=== PATIENT | male | born 1985 | race Caucasian/White ===

== ENCOUNTER 2017-03-29 14:49 | Emergency (ER) | payer MEDICAID ==
[~2017-03-29] VITALS: Ht 177.8 cm; Wt 99.8 kg
[~2017-03-29 14:49] MED LIST: CIPRO 500MG TA500 MG PO; KEFLEX 500MG.500 MG PO; NOMEDS *; NORCO 325 MG-51 TAB PO; TRAMADOL50 M1 PO
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
--- OUTSIDE RECORDS SUMMARY | 2017-03-29 15:34 | External Medical Summary Rpt ---
Author Author RHONDA Nevarez, RH[employer]DA [employer] Organization [employer] Address Unknown Phone Unavailable
--- OUTSIDE RECORDS SUMMARY | 2017-03-29 15:34 | External Medical Summary Rpt ---
Demographics Preferred Language Korean Marital Status Unknown Uatsdin Affiliation Unknown Race Unknown Ethnic Group Unknown Author Author , RHONDA ELLIS Address Unknown Phone Immunization Unable to retrieve immunization data due to connection failure with Immunization Registry. Please try again later.
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
--- OUTSIDE RECORDS SUMMARY | 2017-03-29 15:34 | External Medical Summary Rpt ---
Demographics Preferred Language Ukrainian Marital Status Unknown Lutheran Affiliation Unknown Race Unknown Ethnic Group Unknown Author Author , RHONDA ELLIS Address Unknown Phone Immunization Unable to retrieve immunization data due to connection failure with Immunization Registry. Please try again later.
--- NOTE | 2017-03-29 15:41 | Emergency Room Report ---
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 N Clinical Suspician of Infection? N Mental Status: 1 - Regular (Normal Baseline) Sepsis Risk:Low Sepsis Risk Have you (or family members/close friends) recently traveled outside the [place]? N If Yes, where/when: Have you had exposure to infectious disease within the past month? N TB? Other? Specify: Patient with chronic ear problems, followed by Dr. Blanco. Also has chronic sinus problems, with surgical repair for deviated septum. He reports ear pain for the past day or so. No fever. He last was exposed to water about eight days ago. No garret drainage. ALLERGIES Coded Allergies: No Known Allergies (03/29/17) Home Medications Reported Medications No Known Home Medications History Medical History General CAD? No Angina: No [place]: No Hypertension? No Hyperlipidemia? No CHF? No DVT? No PE? No COPD? No Asthma? No Anemia? No GERD? No Gastric ulcers? No GI Bleed? No Hernia? No Thyroid Problems? No Hypothyroidism? No CVA? No Seizures? No Diabetes? No Renal Insuffiency? No End Stage Renal Disease? No UTI? No Stones? No GB Disease: No Nephritic Syndrome? No Asplenia? No Hepatitis? No Sickle Cell Disease? No Arthritis? No Migraines? No Cataracts? No Glaucoma? No MRSA? No HIV? No TB? No Anxiety? No Depression? No Cancer? No More? No Immunization Hx DT/Tetanus 03/21/12 Surgical Hx Previous Surgery?Y DEVIATED SEPTUM Social History Smoking Hx Smoker: Current Every Day Smoker Tobacco: Yes Type Cigarettes Packs/day < 1 Pack Alcohol Alcohol: Yes Review of Systems All Other Systems Reviewed and Negative ENT see HPI. Physical Exam Vital Signs Vital Signs Date Time Temp Pulse Resp B/P Pulse O2 O2 Flow FiO2 Ox Delivery Rate 03/29 1452 98.6 94 18 153/87 93 General Appearance normal appearance, WD/WN, no apparent distress Eye Exam - bilateral eye normal exam, bilateral eye PERRL, bilateral eye EOMI Ear, Nose, Throat TM's are red and bulging bilaterally; they are intact, but left one is irregular and appears somewhat scarred. I see some slightly liquid cerumen in the right ear canal without garret drainage or erythema. No MARCO ANTONIO, throat w/o erythema. He has very mild nasal congestion and is baseline [employer]. Neck normal inspection, non-tender, supple, full range of motion Respiratory Status Yes: trachea midline. No: respiratory distress. Cardiovascular no peripheral edema Neurologic alert, normal exam, no motor/sensory deficits, oriented x 3 (baseline [employer] [employer]) Glascow Coma Scale Glascow Coma Scale Response Value EYE response: 4 Spontaneously 4 MOTOR response: 6 OBEYS 6 VERBAL response: 5 Oriented & Converses 5 Total 15 Skin intact, normal color, warm/dry Medical Decision Making LABS/Meds/Orders Pt receiving controlled substance in ED? No Departure Departure Time of Disposition 1622 Disposition DC Home or Self Care(routine) Clinical Impression Primary Impression: Otitis media Qualifiers: Otitis media type: unspecified Chronicity: unspecified Laterality: bilateral Qualified Code: H66.93 - Otitis media, unspecified, bilateral Condition STABLE Referrals Petra SALEH,Roberto Barrientos (Family) Francis SALEH,Arnaud Ryder Patient Instructions Middle Ear Infection Additional Instructions Rx Naproxen, Augmentin; see Dr. Lambert next week and Dr. Blanco, next available appointment. Discharge Counseling Counseled pt/family regarding diagnosis, test results, medications/RX, home care, follow up needs Prescriptions Current Visit Scripts NAPROXEN (NAPROXEN 500MG TAB) 500 MG PO BIDP PRN pain #20 TAB Amoxicillin/Potassium Clav (Augmentin 875-125 Tablet) 1 EACH PO BID #20 TAB ED Critical Care Critical Care No at 1628
--- NOTE | 2017-03-29 15:41 | Emergency Room Report ---
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 N Clinical Suspician of Infection? N Mental Status: 1 - Regular (Normal Baseline) Sepsis Risk:Low Sepsis Risk Have you (or family members/close friends) recently traveled outside the [place]? N If Yes, where/when: Have you had exposure to infectious disease within the past month? N TB? Other? Specify: Patient with chronic ear problems, followed by Dr. Blanco. Also has chronic sinus problems, with surgical repair for deviated septum. He reports ear pain for the past day or so. No fever. He last was exposed to water about eight days ago. No garret drainage. ALLERGIES Coded Allergies: No Known Allergies (03/29/17) Home Medications Reported Medications No Known Home Medications History Medical History General CAD? No Angina: No VA: No Hypertension? No Hyperlipidemia? No CHF? No DVT? No PE? No COPD? No Asthma? No Anemia? No GERD? No Gastric ulcers? No GI Bleed? No Hernia? No Thyroid Problems? No Hypothyroidism? No CVA? No Seizures? No Diabetes? No Renal Insuffiency? No End Stage Renal Disease? No UTI? No Stones? No GB Disease: No Nephritic Syndrome? No Asplenia? No Hepatitis? No Sickle Cell Disease? No Arthritis? No Migraines? No Cataracts? No Glaucoma? No MRSA? No HIV? No TB? No Anxiety? No Depression? No Cancer? No More? No Immunization Hx DT/Tetanus 03/21/12 Surgical Hx Previous Surgery?Y DEVIATED SEPTUM Social History Smoking Hx Smoker: Current Every Day Smoker Tobacco: Yes Type Cigarettes Packs/day < 1 Pack Alcohol Alcohol: Yes Review of Systems All Other Systems Reviewed and Negative ENT see HPI. Physical Exam Vital Signs Vital Signs Date Time Temp Pulse Resp B/P Pulse O2 O2 Flow FiO2 Ox Delivery Rate 03/29 1452 98.6 94 18 153/87 93 General Appearance normal appearance, WD/WN, no apparent distress Eye Exam - bilateral eye normal exam, bilateral eye PERRL, bilateral eye EOMI Ear, Nose, Throat TM's are red and bulging bilaterally; they are intact, but left one is irregular and appears somewhat scarred. I see some slightly liquid cerumen in the right ear canal without garret drainage or erythema. No MARCO ANTONIO, throat w/o erythema. He has very mild nasal congestion and is baseline [place]. Neck normal inspection, non-tender, supple, full range of motion Respiratory Status Yes: trachea midline. No: respiratory distress. Cardiovascular no peripheral edema Neurologic alert, normal exam, no motor/sensory deficits, oriented x 3 (baseline [place]) Glascow Coma Scale Glascow Coma Scale Response Value EYE response: 4 Spontaneously 4 MOTOR response: 6 OBEYS 6 VERBAL response: 5 Oriented & Converses 5 Total 15 Skin intact, normal color, warm/dry Medical Decision Making LABS/Meds/Orders Pt receiving controlled substance in ED? No Departure Departure Time of Disposition 1622 Disposition DC Home or Self Care(routine) Clinical Impression Primary Impression: Otitis media Qualifiers: Otitis media type: unspecified Chronicity: unspecified Laterality: bilateral Qualified Code: H66.93 - Otitis media, unspecified, bilateral Condition STABLE Referrals Petra SALEH,Roberto Barrientos (Family) Francis SALEH,Arnaud Ryder Patient Instructions Middle Ear Infection Additional Instructions Rx Naproxen, Augmentin; see Dr. Lambert next week and Dr. Blanco, next available appointment. Discharge Counseling Counseled pt/family regarding diagnosis, test results, medications/RX, home care, follow up needs Prescriptions Current Visit Scripts NAPROXEN (NAPROXEN 500MG TAB) 500 MG PO BIDP PRN pain #20 TAB Amoxicillin/Potassium Clav (Augmentin 875-125 Tablet) 1 EACH PO BID #20 TAB ED Critical Care Critical Care No at 1627
[2017-03-29] MEDS ORDERED: NAPROXEN SODIU500 MG PO (16:26)
[2017-03-29] MEDS ORDERED: AUGMENTIN 875-1 EACH PO (16:26)
[2017-03-29 16:29] VITALS: BP 142/74
== END 2017-03-29 16:29 | disposition home or self-care (01) ==
LOC: ER 14:49
DX: H66.93 Otitis media, unspecified, bilateral (principal)

== ENCOUNTER 2017-03-31 08:50 | Emergency (ER) | payer MEDICAID ==
[~2017-03-31] VITALS: Ht 177.8 cm; Wt 99.8 kg
[~2017-03-31 08:50] MED LIST changes: +AUGMENTIN 875-1 EACH PO; +NAPROXEN SODIU500 MG PO
[2017-03-31] MEDS ORDERED: MEDROL 4MG. DOSE4 MG PO (09:23)
--- NOTE | 2017-03-31 09:23 | Urgent Treatment Center Report ---
History of Present Issue Date/Time Seen by Provider 03/31/17 0911 Visit Reason Pt arrived:Walked Presenting Problem:RT EAR PAIN SINCE WEDNESDAY. SEEN IN ER WEDNESDAY FOR EAR PAIN. Location if Accident: Onset of symptoms date/time:/ or onset unknown for:MEDICAL HX UNKNOWN Have you (or family members/close friends) recently traveled outside the [place]? N If Yes, where/when: Have you had exposure to infectious disease within the past month? TB? Other? Specify: Patient state that he has a history of chronic ear infections state that he was seen in the ER on Wednesday and given Augmentin states that he has been taking it but still having pain in his ear and his ear is draining puss State that this occurs frequently when he gets a ear infection State that he normally sees Dr Blanco ENT but he is out of town right now ALLERGIES Coded Allergies: No Known Allergies (03/29/17) Home Medications Active Scripts Amoxicillin/Potassium Clav (Augmentin 875-125 Tablet) 1 EACH PO BID #20 TAB Prov: 03/29/17 History Medical History General CAD? No Angina: No [place]: No Hypertension? No Hyperlipidemia? No CHF? No DVT? No PE? No COPD? No Asthma? No Anemia? No GERD? No Gastric ulcers? No GI Bleed? No Hernia? No Thyroid Problems? No Hypothyroidism? No CVA? No Seizures? No Diabetes? No Renal Insuffiency? No UTI? No Stones? No GB Disease: No Nephritic Syndrome? No Asplenia? No Hepatitis? No Sickle Cell Disease? No Arthritis? No Migraines? No Cataracts? No Glaucoma? No MRSA? No HIV? No TB? No Anxiety? No Depression? No Cancer? No More? No Immunization HX DT/Tetanus 03/21/12 Surgical Hx Previous Surgery?Y DEVIATED SEPTUM Social History Smoking Hx Smoker: Current Every Day Smoker Tobacco: Yes Type Cigarettes Packs/day < 1 Pack Alcohol Alcohol: Yes Review of Systems All Other Systems Reviewed and Negative ENT ear pain, ear discharge. Physical Exam Vital Signs Vital Signs Date Time Temp Pulse Resp B/P Pulse O2 O2 Flow FiO2 Ox Delivery Rate 03/31 902 98.3 106 18 152/97 98 General Appearance Patient appears ill, sitting on exam table holding his hand over his ear Ear, Nose, Throat Right ear swollen, draining puss, left ear red fluid noted Respiratory Status Yes: trachea midline, chest symmetrical, non tender chest. No: respiratory distress. 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 No Results/Orders Current Medication Orders Sig/Sudhir Start time Last Medication Dose Route Stop Time Status Admin Ketorolac 60 MG ONCE ONE 03/31 930 AC Tromethamine IM 03/31 931 Ketorolac 0 .STK-MED ONE 03/31 918 DC Tromethamine .ROUTE Progress [facility] Progress Notes Date 03/31/17 Time 09 Comment Patient educated on Augmentin and Naproxen. Patient educated that adding a steriod to his antibiotic may help to dry up some of the fluid that is currently behind his ear which in turn can help with pain and discomfort. Patient has only been taking Augmentin for two days so at this time he will stay on medication as ample time has not passed to see if the medication is going to work Departure Departure Time of Disposition 928 Disposition DC Home or Self Care(routine) Clinical Impression Primary Impression: Otitis media Qualifiers: Otitis media type: unspecified Chronicity: unspecified Laterality: right Qualified Code: H66.91 - Otitis media, unspecified, right ear Condition STABLE Referrals Petra SALEH,Roberto Barrientos (Family) Francis SALEH,Arnaud Ryder Patient Instructions DI for Otitis Media (Middle Ear Infection)-Child Additional Instructions Continue to take antibiotics as prescribed Take Medrol dose pack as directed FOllow up with family doctor Follow up with Dr Blanco when he becomes available Discharge Counseling Counseled pt/family regarding diagnosis, medications/RX, home care, follow up needs Prescriptions Current Visit Scripts Methylprednisolone (Medrol Dose Eddie) 4 MG PO UD #1 EDDIE TAKE DIRECTED ON PACKAGING at 0932
[2017-03-31 09:29] VITALS: BP 152/97
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
--- OUTSIDE RECORDS SUMMARY | 2017-04-02 19:31 | External Medical Summary Rpt ---
Demographics Preferred Language Hungarian Marital Status Unknown Cheondoism Affiliation Unknown Race Unknown Ethnic Group Unknown Author Author , RHONDA ELLIS Address Unknown Phone Immunization Unable to retrieve immunization data due to connection failure with Immunization Registry. Please try again later.
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
--- OUTSIDE RECORDS SUMMARY | 2017-04-02 19:31 | External Medical Summary Rpt ---
Demographics Preferred Language French Marital Status Unknown Yazdanism Affiliation Unknown Race Unknown Ethnic Group Unknown Author Author , RHONDA ELLIS Address Unknown Phone Immunization Unable to retrieve immunization data due to connection failure with Immunization Registry. Please try again later.
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
== END 2017-03-31 09:32 | disposition home or self-care (01) ==
LOC: UTC 08:50
DX: H66.91 Otitis media, unspecified, right ear (principal); Z72.0 Tobacco use

== ENCOUNTER 2017-06-14 10:02 | Emergency (ER) | payer MEDICAID ==
[~2017-06-14] VITALS: Ht 177.8 cm; Wt 100.0 kg
[~2017-06-14 10:02] MED LIST changes: +MEDROL 4MG. DOSE4 MG PO
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
--- OUTSIDE RECORDS SUMMARY | 2017-06-14 10:11 | External Medical Summary Rpt ---
Author Author RHONDA Nevarez, RHONDA Nevarez Organization [employer] Address Unknown Phone Unavailable
--- OUTSIDE RECORDS SUMMARY | 2017-06-14 10:11 | External Medical Summary Rpt | CCD ---
Demographics Preferred Language Khmer Marital Status Unknown Holiness Affiliation Unknown Race Unknown Ethnic Group Unknown Author Author , RHONDA ELLIS Address Unknown Phone Immunization No patient found.
--- OUTSIDE RECORDS SUMMARY | 2017-06-14 10:11 | External Medical Summary Rpt | CCD ---
Demographics Preferred Language Yi Marital Status Unknown Amish Affiliation Unknown Race Unknown Ethnic Group Unknown Author Author , RHONDA ELLIS Address Unknown Phone Immunization No patient found.
--- NOTE | 2017-06-14 11:10 | Urgent Treatment Center Report ---
History of Present Issue Date/Time Seen by Provider 06/14/17 1108 Visit Reason Pt arrived:Walked Presenting Problem:PT STATES HE HAS HAD LEFT EAR PAIN AND HEARING LOSS SINCE SAT Location if Accident: Onset of symptoms date/time:06/12/17 or onset unknown for: Have you (or family members/close friends) recently traveled outside the [place]? N If Yes, where/when: Have you had exposure to infectious disease within the past month? TB? Other? Specify: c/o left ear pain and hearing loss progressing since Wednesday, 2 days ago. hx of recurrent "ear problems" per mother. Has seen Francis. missed appointment this month. Last OM months ago. Hasn't taken or tried anything for symptoms. thick summers drainage from yovana EACs. Source patient Exam Limitations no limitations ALLERGIES Coded Allergies: No Known Allergies (03/29/17) Home Medications Active Scripts Methylprednisolone (Medrol Dose Eddie) 4 MG PO UD #1 EDDIE Prov: 03/31/17 Amoxicillin/Potassium Clav (Augmentin 875-125 Tablet) 1 EACH PO BID #20 TAB Prov: 03/29/17 History Medical History General CAD? No Angina: No IN: No Hypertension? No Hyperlipidemia? No CHF? No DVT? No PE? No COPD? No Asthma? No Anemia? No GERD? No Gastric ulcers? No GI Bleed? No Hernia? No Thyroid Problems? No Hypothyroidism? No CVA? No Seizures? No Diabetes? No Renal Insuffiency? No UTI? No Stones? No GB Disease: No Nephritic Syndrome? No Asplenia? No Hepatitis? No Sickle Cell Disease? No Arthritis? No Migraines? No Cataracts? No Glaucoma? No MRSA? No HIV? No TB? No Anxiety? No Depression? No Cancer? No More? No Immunization HX DT/Tetanus 03/21/12 Surgical Hx Previous Surgery?Y DEVIATED SEPTUM Social History Smoking Hx Smoker: Former Smoker Tobacco: Yes Type Cigarettes Packs/day < 1 Pack Alcohol Alcohol: Yes Review of Systems All Other Systems Reviewed and Negative Constitutional denies fever, denies malaise ENT see HPI, nose discharge. denies: nose congestion, throat pain. Respiratory denies cough Gastrointestinal denies no symptoms reported Musculoskeletal denies neck pain Skin denies lesions, denies lumps, denies rash Psychiatric/Neurological denies headache Physical Exam Vital Signs Vital Signs Date Time Temp Pulse Resp B/P Pulse O2 O2 Flow FiO2 Ox Delivery Rate 06/14 1123 98.8 102 20 145/96 100 06/14 1020 98.8 102 20 145/96 100 General Appearance normal appearance, no apparent distress Ear, Nose, Throat normal pharynx, minimal nasal congestion, right EAC slightly erythematous w/ green drainage present, tender, right TM appears intact, bright red, bulging, no visible landmarks; left EAC significantly swollen, marked tenderness, summers discharge, TM not visible due to discharge and swelling Neck non-tender, supple Respiratory Status No: respiratory distress, productive cough, non productive cough. Lung Sounds anterior: lungs clear. posterior: lungs clear. bilateral: lungs clear. Cardiovascular regular rate/rhythm, no peripheral edema, no murmur, tachycardia Neurologic alert Mental status normal mood/affect Skin normal color, warm/dry Lymphatic no adenopathy Medical Decision Making LABS/Meds/Orders Pt receiving controlled substance in ED? No Departure Departure Time of Disposition 1120 Disposition DC Home or Self Care(routine) Clinical Impression Primary Impression: Right otitis media Qualifiers: Otitis media type: unspecified Qualified Code: H66.91 - Otitis media, unspecified, right ear Secondary Impressions: Bilateral otitis externa Qualifiers: Otitis externa type: unspecified type Chronicity: unspecified Qualified Code: H60.93 - Unspecified otitis externa, bilateral Condition STABLE Referrals Francis SALEH,Arnaud Ryder Call today and schedule follow up appointment. Preferably in 7-14 days to see if infection improving but sooner for new or worsening symptoms. Patient Instructions DI for Otitis Externa, DI for Otitis Media (Middle Ear Infection)-Child Additional Instructions * Start antibiotic pills and drops SHAHZAD and be sure to take as ordered for the FULL length of time although you should start to feel better in 24-48 hours. * Will try antibiotic drop plus steroid but often times insurance will not cover. If they don't, you will have to try antibiotics only first so BE SURE to follow up if not improving. * Monitor Temp. Tylenol every 4 hours as needed no more then 5 times in 24 hours and/or ibuprofen every 6 hours as needed (as long as your primary care doctor has told you that it is ok to take both) for fever/aches/pain. ER if fever no less than 101 despite Tylenol and ibuprofen * Encourage fluids, water, Gatorade, PowerAde, pedialyte if /toddler/child * no water in ears. Do not put anything in ear except prescribed medication * sleep elevated Discharge Counseling Counseled pt/family regarding diagnosis, medications/RX, home care, follow up needs Prescriptions Current Visit Scripts AMOXICILLIN (Amoxicillin 875MG Tab) 875 MG PO BID #20 TAB CIPROFLOXACIN HCL/DEXAMETH (Ciprodex Otic Suspension) 4 DROP OT BID #1 BOT Ibuprofen (Ibuprofen 800MG) 800 MG PO QIDP PRN pain #20 TAB every 6 hours as needed; take with food; no other NSAIDS (motrin, advil, aleve, ibuprofen, etc) Comments [facility] called after pt had left and prescription escripted. ciprodex not covered but cortisporin gtts are. Changed to cortisporin 4gtts each ear 4x/ day x 7-10 days. at 2200
[2017-06-14 11:23] VITALS: BP 145/96
[2017-06-14] MEDS ORDERED: AMOXICILLIN875 MG PO (11:24)
[2017-06-14] MEDS ORDERED: CIPRODEX 0.3%-7.5 ML OT (11:24)
[2017-06-14] MEDS ORDERED: IBUPROFEN800 MG PO (11:24)
== END 2017-06-14 11:26 | disposition home or self-care (01) ==
LOC: UTC 10:02
DX: H66.91 Otitis media, unspecified, right ear (principal); H60.93 Unspecified otitis externa, bilateral; Z87.891 Personal history of nicotine dependence